=== PATIENT | male | born 2000 | race Caucasian/White ===

== ENCOUNTER 2021-08-18 11:25 | Emergency (ER) | payer MEDICAID ==
[~2021-08-18] VITALS: Ht 188 cm; Wt 46.0 kg
[2021-08-18 11:59] VITALS: BP 132/89
== END 2021-08-18 15:20 | disposition left against medical advice (07) ==
LOC: ER 11:25
DX: Z53.21 Procedure and treatment not carried out due to patient leaving prior to being seen by health care provider (principal)